=== PATIENT | female | born 1990 | race Caucasian/White ===

== ENCOUNTER 2022-03-05 23:19 | Emergency (ER) | payer OTHER ==
[~2022-03-05] VITALS: Ht 170.2 cm; Wt 112.0 kg
[2022-03-05 23:37] VITALS: BP 131/72
[2022-03-05] MEDS ORDERED: AMOX-430 PO (23:52)
[2022-03-05] MEDS ORDERED: PRED50TA PO (23:52)
[2022-03-06] MEDS ORDERED: FAMOTIDINE (20 MG) 20 MG TABLET PO ONE
[2022-03-06] MEDS ORDERED: DEXAMETHASONE SOD PHOSPHATE 10 MG/ML VIAL IM ONE
[2022-03-06] MEDS ORDERED: FAMOTIDINE (20 MG) 20 MG TABLET ONE ×2 (00:03→00:10)
[2022-03-06] MEDS ORDERED: DEXAMETHASONE SOD PHOSPHATE 10 MG/ML VIAL ONE (00:03)
--- NOTE | 2022-03-06 00:11 | NUR ---
Patient discharged to home in stable condition. Written and verbal after care instructions given. Patient verbalizes understanding of instruction.
== END 2022-03-06 00:12 | disposition home or self-care (01) ==
LOC: ER 23:30
DX: S50.812A Abrasion of left forearm, initial encounter (principal); J30.81 Allergic rhinitis due to animal (cat) (dog) hair and dander; F17.200 Nicotine dependence, unspecified, uncomplicated; Z79.899 Other long term (current) drug therapy; W55.03XA Scratched by cat, initial encounter; Y93.89 Activity, other specified; Y92.89 Other specified places as the place of occurrence of the external cause; Y99.8 Other external cause status
CPT/HCPCS: 99283; 96372; J1100

== ENCOUNTER 2022-06-10 04:17 | Emergency (ER) | payer MEDICAID, OTHER ==
[~2022-06-10] VITALS: Ht 170.2 cm; Wt 113.4 kg
[~2022-06-10 04:17] MED LIST: AMOX-430 PO; PRED50TA PO
--- NOTE | 2022-06-10 04:45 | NUR ---
TO ER BED 7. [employer]. FOR MULTIPLE PUNCTURE AND LACERATION ON LOWER LIP FROM DOG BITE. PT IS ALERT AND ORIENTED. RR EVEN ANDNONLABORED. CONNECTED TO MONITOR
[2022-06-10] MEDS ORDERED: HYDROCODONE/APAP 5/325MG TABLET ONE (05:13)
[2022-06-10] MEDS ORDERED: HYDROCODONE/APAP 5/325MG TABLET PO ONE (05:30)
[2022-06-10] MEDS ORDERED: TDAP [DIPH/PERTUSSIS/TET] 0.5 ML VIAL IM ONE ×2 (06:30→06:31)
[2022-06-10] MEDS ORDERED: AMOX-430 PO (07:35)
[2022-06-10 07:41] VITALS: BP 118/75
--- NOTE | 2022-06-10 07:42 | NUR ---
Patient discharged to home in stable condition. Written and verbal after care instructions given. Patient verbalizes understanding of instruction.
== END 2022-06-10 07:42 | disposition home or self-care (01) ==
LOC: ER 04:19
DX: S01.511A Laceration without foreign body of lip, initial encounter (principal); S01.551A Open bite of lip, initial encounter; F17.200 Nicotine dependence, unspecified, uncomplicated; Z79.899 Other long term (current) drug therapy; W54.0XXA Bitten by dog, initial encounter; Y93.89 Activity, other specified; Y92.89 Other specified places as the place of occurrence of the external cause; Y99.8 Other external cause status
CPT/HCPCS: 40650; 99284; 90471; 90715; A6403

== ENCOUNTER 2023-11-18 00:09 | Emergency (ER) | payer BC, MEDICAID ==
[~2023-11-18] VITALS: Ht 170.2 cm; Wt 102.1 kg
[2023-11-18 01:15] LABS: BASOPHILS # (AUTO) 0.1 K/uL (0.0-0.2); BASOPHILS % (AUTO) 0.6 % (0.0-2.0); EOSINOPHILS # (AUTO) 0.1 K/uL (0.0-0.7); EOSINOPHILS % (AUTO) 1.1 % (0.0-6.0); HEMATOCRIT 34 % (33-45); HEMOGLOBIN 11.4 g/dL (11.5-14.8); LYMPHOCYTES # (AUTO) 2.1 K/uL (0.8-4.8); LYMPHOCYTES % (AUTO) 20.2 % (20.0-44.0); MEAN CORPUSCULAR HEMOGLOBIN 30 PG (26.0-33.0); MEAN CORPUSCULAR HGB CONC 33 g/dl (31.0-36.0); MEAN CORPUSCULAR VOLUME 89 fL (82-100); MONOCYTES # (AUTO) 0.6 K/uL (0.1-1.30); MONOCYTES % (AUTO) 5.9 % (2.0-12.0); NEUTROPHILS # (AUTO) 7.5 K/uL (1.8-8.9); NEUTROPHILS % (AUTO) 72.2 % (43.0-81.0); PLATELET COUNT (AUTO) 197 K/uL (150-450); RED BLOOD CELL COUNT(AUTO) 3.83 MIL/uL (4.0-5.2); RED CELL DISTRIBUTION WIDTH 14.3 % (11.5-15.0); WHITE BLOOD COUNT (AUTO) 10.3 K/uL (4.3-11.0)
[2023-11-18 01:21] LABS: CALCIUM, SERUM 9.2 mg/dL (8.5-10.1); CREATININE 0.7 mg/dL (0.6-1.3); POTASSIUM 3.9 mmol/L (3.5-5.1)
[2023-11-18 01:26] LABS: INR 1.03 (0.91-1.10); PARTIAL THROMBOPLASTIN TIME 26.2 SEC (24.3-34.3); PROTHROMBIN TIME 10.9 SECS (9.2-11.1)
[2023-11-18] MEDS ORDERED: Methergine PO (03:48)
[2023-11-18] MEDS ORDERED: [UNRECOGNIZED DRUG - CODE] PO (03:50)
[2023-11-18] MEDS ORDERED: METHYLERGONOVINE MALEATE 0.2 MG/ML AMPUL ONE (03:59)
[2023-11-18] MEDS: METHYLERGONOVINE MALEATE 0.2 MG/ML AMPUL IM ONE (04:09)
[2023-11-18 04:10] VITALS: BP 116/62; O2SAT 100
== END 2023-11-18 04:12 | disposition home or self-care (01) ==
LOC: ER 00:12
DX: N93.9 Abnormal uterine and vaginal bleeding, unspecified (principal); R10.2 Pelvic and perineal pain; F17.200 Nicotine dependence, unspecified, uncomplicated; Z79.899 Other long term (current) drug therapy
CPT/HCPCS: 36415; 76856-TC; 80048-TC; 84702-TC; 85025-TC; 85730-TC; J2210